=== PATIENT | male | born 1990 | race Caucasian/White ===

== ENCOUNTER 2016-11-06 18:13 | Emergency (ER) | payer OTHER | END 2016-11-06 19:09 | disposition home or self-care (01) | LOC: ER1 18:13 | DX: J02.0 Streptococcal pharyngitis (principal); F17.210 Nicotine dependence, cigarettes, uncomplicated; Z88.8 Allergy status to other drugs, medicaments and biological substances | CPT/HCPCS: 87081; 87880; 99283 ==